=== PATIENT | female | born 1945 | race Caucasian/White ===

== ENCOUNTER → 2016-04-10 | Outpatient (CLI) | payer OTHER ==
[~2016-04-10] MED LIST: ALL300 PO; ATOR-22 PO; BUDE1SUS8 NAE; CHOL1000 PO; CYCL0.052 OP; DIAZ2TAB PO; DIPH-437 PO; METO25TA3 PO; MULT-506 PO; NAPR500T3 PO; PRLSR20 PO; SUMA100T16 PO; VENTOLIN INH; VITA1CRE PO
[2016-04-10 12:06] LABS: HEMATOCRIT 40.3 % (37-47); MEAN CELL VOLUME 94.2 fL (80-100); MEAN CORPUSCULAR HEMOGLOBIN 31.3 pg (25-34); MEAN CORPUSCULAR HGB CONC 33.3 g/dl (32-36); MEAN PLATELET VOLUME 12.4 fL (7.4-10.4); PLATELET COUNT 218 K/uL (130-400); RED BLOOD COUNT 4.28 M/uL (4.2-5.4); WHITE BLOOD COUNT 6.83 K/uL (4.8-10.8)
[2016-04-10 13:03] LABS: BLOOD UREA NITROGEN 20 mg/dl (7-18); BUN/CREATININE RATIO 19.8 (10-20); CARBON DIOXIDE 26 mmol/L (21-32); CHLORIDE 107 mmol/L (98-107); GLUCOSE 96 mg/dl (70-99); POTASSIUM 4.3 mmol/L (3.5-5.1); SODIUM 142 mmol/L (136-145)
[2016-04-10 13:07] LABS: CHOLESTEROL 175 mg/dl (0-200); CHOLESTEROL/HDL RATIO 2.8; HDL CHOLESTEROL 63 mg/dl; LDL CHOLESTEROL CALCULATED 87 mg/dl; TRIGLYCERIDES 123 mg/dl (0-150); VERY LOW DENSITY LIPOPROT CALC 25 mg/dl
== END | disposition home or self-care (01) ==
LOC: C.LABPVFM 08:38
PROVIDERS: ATTEND Family Medicine
DX: Z11.59 Encounter for screening for other viral diseases (principal); E78.2 Mixed hyperlipidemia; D64.9 Anemia, unspecified

== ENCOUNTER → 2016-08-12 | Outpatient (CLI) | payer OTHER ==
[2016-08-13 04:56] LABS: ESTIMATED AVERAGE GLUCOSE 123 mg/dl; HA1C FLAG Normal (Normal)
== END | disposition home or self-care (01) ==
LOC: C.LABPVFM 14:09
PROVIDERS: ATTEND Family Medicine
DX: R73.09 Other abnormal glucose (principal)

== ENCOUNTER → 2017-01-20 | Outpatient (CLI) | payer OTHER ==
[2017-01-20 13:30] LABS: BLOOD UREA NITROGEN 28 mg/dl (7-18); BUN/CREATININE RATIO 26.3 (10-20); CALCIUM 10.5 mg/dl (8.5-10.1); CARBON DIOXIDE 28 mmol/L (21-32); CHLORIDE 107 mmol/L (98-107); CREATININE 1.06 mg/dl (0.60-1.20); GLUCOSE 90 mg/dl (70-99); POTASSIUM 4.4 mmol/L (3.5-5.1); SODIUM 140 mmol/L (136-145)
[2017-01-20 13:36] LABS: ESTIMATED AVERAGE GLUCOSE 120 mg/dl; HA1C FLAG Normal (Normal)
== END | disposition home or self-care (01) ==
LOC: C.LABPVFM 11:17
PROVIDERS: ATTEND Family Medicine
DX: I10 Essential (primary) hypertension (principal); R73.09 Other abnormal glucose

== ENCOUNTER → 2017-03-31 | Outpatient (CLI) | payer OTHER ==
--- NOTE | 2017-03-31 15:09 | MAMMOGRAPHY REPORT ---
BILATERAL DIGITAL SCREENING MAMMOGRAM TOMOSYNTHESIS WITH CAD: 03/31/2017 TECHNIQUE: Breast tomosynthesis in addition to standard 2D mammography was performed. Current study was also evaluated with a Computer Aided Detection (CAD) system. COMPARISON: Comparison is made to exams dated: 02/14/2016 mammogram, 02/01/2015 mammogram, 01/26/2014 mammogram, 01/19/2013 mammogram, 12/30/2011 mammogram, and 11/27/2010 mammogram - [facility]. BREAST COMPOSITION: There are scattered areas of fibroglandular density in both breasts. FINDINGS: No suspicious masses, calcifications, or areas of architectural distortion are noted in ei ther breast. There has been no significant interval change compared to prior exams. IMPRESSION: ACR BI-RADS CATEGORY 1: NEGATIVE There is no mammographic evidence of malignancy. A 1 year screening mammogram is recommended. The pa tient will receive written notification of the results. Approximately 10% of breast cancers are not detected with mammography. A negative mammographic report should not delay biopsy if a clinically suggestive mass is present. Shakira Grant M.D. ah/:03/31/2017 10:59:07 Clam Bed Laborer: Carlie DELEON(R)(M), [facility] letter sent: Normal 1/2 BI-RADS Code: ACR BI-RADS Category 1: Negative
== END | disposition home or self-care (01) ==
LOC: C.MAMM 10:40
PROVIDERS: ATTEND Nurse Practitioner
DX: Z12.31 Encounter for screening mammogram for malignant neoplasm of breast (principal)

== ENCOUNTER 2022-08-31 05:19 | Observation (INO) ==
--- NOTE | 2022-07-24 11:46 | PAT Medication Instructions ---
Medication Instructions Date of Service July 24, 2022 Home Medications Medication Instructions Recorded omeprazole 20 mg capsule,delayed 20 mg PO QAM #90 caps 01/16/22 release allopurinol 300 mg tablet 150 mg PO QAM #45 tabs 07/16/22 atorvastatin 20 mg tablet 20 mg PO QPM #90 tabs 07/16/22 metoprolol succinate 25 mg 25 mg PO QAM #90 tabs 07/16/22 tablet,extended release 24 hr cholecalciferol (vitamin D3) 25 mcg (1,000 unit) capsule 1,000 units PO QAM cyclosporine 0.05 % eye drops in a dropperette (Restasis) 1 drops ophthalmic (eye) Q12H acetaminophen 500 mg capsule 500 mg PO Q4H PRN biotin 5 mg tablet 5 mg PO QAM fluticasone propionate 50 mcg/actuation nasal spray,suspension (Flonase Allergy Relief) 2 spray intranasal QAM multivitamin 1 tab PO QPM coffee 100 mg theanine 200 mg superoxide dismutase 10 mg capsule (Neuriva De-Str ess) 1 cap PO QAM lactobacillus combo no.13 1 billion cell capsule,delayed release (Probiotic Pearls Complete) 1 cap PO QAM omeprazole 20 mg capsule,delayed release 20 mg PO QAM allopurinol 300 mg tablet 150 mg PO QAM atorvastatin 20 mg tablet 20 mg PO QPM metoprolol succinate 25 mg tablet,extended release 24 hr 25 mg PO QAM albuterol sulfate 90 mcg/actuation aerosol inhaler (Ventolin HFA) 2 puff inhalation UD PRN diazepam 5 mg tablet 2.5 - 5 mg PO DAILY PRN ibuprofen 200 mg capsule 600 mg PO BID sumatriptan succinate 100 mg tablet 100 mg PO UD PRN vitamins A,C,N-jsfa-trpesw 4,296 mcg-226 mg-90 mg capsule (PreserVision AREDS) 1 cap PO QAM Continue as directed diazepam 5 mg tablet 2.5 - 5 mg PO DAILY PRN(if needed) sumatriptan succinate 100 mg tablet 100 mg PO UD PRN(if needed) ASK your surgeon for instructions ibuprofen 200 mg capsule 600 mg PO BID STOP taking 2 weeks before surgery (or as soon as possible if surgery is within 2 weeks) biotin 5 mg tablet 5 mg PO QAM vitamins A,C,D-hudw-cmieqw 4,296 mcg-226 mg-90 mg capsule (PreserVision AREDS) 1 cap PO QAM DO NOT take the morning of surgery cholecalciferol (vitamin D3) 25 mcg (1,000 unit) capsule 1,000 units PO QAM coffee 100 mg theanine 200 mg superoxide dismutase 10 mg capsule (Neuriva De- Stress) 1 cap PO QAM lactobacillus combo no.13 1 billion cell capsule,delayed release (Probiotic Pearls Complete) 1 cap PO QAM Take morning of surgery With a small sip of water, OTHERWISE NOTHING TO EAT OR DRINK AFTER MIDNIGHT: cyclosporine 0.05 % eye drops in a dropperette (Restasis) 1 drops ophthalmic (eye) Q12H acetaminophen 500 mg capsule 500 mg PO Q4H PRN(if needed) fluticasone propionate 50 mcg/actuation nasal spray,suspension (Flonase Allergy Relief) 2 spray intranasal QAM omeprazole 20 mg capsule,delayed release 20 mg PO QAM allopurinol 300 mg tablet 150 mg PO QAM metoprolol succinate 25 mg tablet,extended release 24 hr 25 mg PO QAM albuterol sulfate 90 mcg/actuation aerosol inhaler (Ventolin HFA) 2 puff inhalation UD PRN(use if needed; please bring with you to hospital day of surgery if possible) Take evening before surgery cyclosporine 0.05 % eye drops in a dropperette (Restasis) 1 drops ophthalmic (eye) Q12H acetaminophen 500 mg capsule 500 mg PO Q4H PRN(if needed) multivitamin 1 tab PO QPM atorvastatin 20 mg tablet 20 mg PO QPM Other Notes If you have any questions please call us at [phone] or [phone] or [phone] or [phone]
--- NOTE | 2022-07-28 11:58 | Anesthesiology Consultation ---
Date of Service July 28, 2022 Assessment & Plan (1) Encounter for pre-operative examination: - COVID screening: Per assessment on 07/28: No known COVID-19 positive contacts or current COVID-19 related symptoms (does have seasonal allergies with occasional cough/sneezing unchanged. No new issues). Travel screen negative. Patient vaccinated. At surgeon discretion if preop Covid testing being done. - Outpatient joint assessment: Pt currently scheduled for inpatient pathway. If surgeon requests review for outpatient joint pathway, patient is not recommended candidate for outpatient joint program from anesthesia standpoint. - Hx difficult intubation: Reported per patient- told with 2008 surgery r/t decreased oral opening/TMJ. Subsequent Right knee arthroscopy (05/30/20)- Grade 1 view, Glidescope# 3, ETT 7 at [facility]. Chart Review Chart Review: Acceptable Risk for Surgery and Patient seen in Pre Admission Testing Teaching & Discussion Pre-Anesthesia Teaching/Discussion Notes: Instructed NPO after midnight before surgery,except medications with 15 cc of water. Medication instructions provided according to the PAT guidelines. History Surgery Operation Date: 08/31/22 07:00 Proposed Procedures p Right Total Knee Arthroplasty - Andrés Wei DO Height/Weight Height: 5 ft 3 in Weight: 98.8 kg Allergies Allergy/AdvReac Type Severity Reaction Status Date / Time Iodinated Contrast Media Allergy Severe Anaphylaxis Verified 07/28/22 08:54 iodine Allergy Severe Anaphylaxis Verified 07/24/22 08:03 bee venom protein (honey bee) Allergy Intermediate Severe Verified 07/28/22 08:54 swelling latex Allergy Intermediate Blisters- Verified 07/28/22 08:54 contact dermatitis Penicillins Allergy Intermediate Rash Verified 07/28/22 08:54 adhesive Allergy Mild Rash Verified 07/28/22 08:54 house dust mite Allergy Mild Sneezing Verified 07/24/22 08:03 tree and shrub pollen Allergy Mild Runny Verified 07/24/22 08:03 Nose/Coughing/Sneezing ciprofloxacin AdvReac Intermediate Hallucinations, Verified 07/28/22 08:54 suicidal ideations Medications Home Medications Medication Instructions Recorded Confirmed Last Taken cholecalciferol (vitamin D3) 25 1,000 units PO QAM 09/28/18 07/24/22 05/29/20 mcg (1,000 unit) capsule cyclosporine 0.05 % eye drops in a 1 drops ophthalmic (eye) Q12H 11/29/18 07/24/22 05/29/20 dropperette (Restasis) acetaminophen 500 mg capsule 500 mg PO Q4H PRN Pain 12/01/18 07/24/22 05/28/20 biotin 5 mg tablet 5 mg PO QAM 03/21/19 07/24/22 05/29/20 fluticasone propionate 50 2 spray intranasal QAM 10/31/19 07/24/22 05/29/20 mcg/actuation nasal spray,suspension (Flonase Allergy Relief) multivitamin 1 tab PO QPM 05/02/20 07/24/22 05/29/20 coffee 100 mg theanine 200 mg 1 cap PO QAM 09/10/21 07/24/22 Unknown superoxide dismutase 10 mg capsule (Neuriva De-Stress) lactobacillus combo no.13 1 1 cap PO QAM 09/10/21 07/24/22 Unknown billion cell capsule,delayed release (Probiotic Pearls Complete) omeprazole 20 mg capsule,delayed 20 mg PO QAM #90 caps 01/16/22 07/24/22 Unknown release allopurinol 300 mg tablet 150 mg PO QAM #45 tabs 07/16/22 07/24/22 Unknown atorvastatin 20 mg tablet 20 mg PO QPM #90 tabs 07/16/22 07/24/22 Unknown metoprolol succinate 25 mg 25 mg PO QAM #90 tabs 07/16/22 07/24/22 Unknown tablet,extended release 24 hr albuterol sulfate 90 mcg/actuation 2 puff inhalation UD PRN 07/24/22 07/24/22 Unknown aerosol inhaler (Ventolin HFA) bronchospasm diazepam 5 mg tablet 2.5 - 5 mg PO DAILY PRN BALANCE 07/24/22 07/24/22 Unknown PROBLEMS ibuprofen 200 mg capsule 600 mg PO BID 07/24/22 07/24/22 Unknown sumatriptan succinate 100 mg tablet 100 mg PO UD PRN migraine headache 07/24/22 07/24/22 Unknown vitamins A,C,O-lirn-jlkssa 4,296 1 cap PO QAM 07/24/22 07/24/22 Unknown mcg-226 mg-90 mg capsule (PreserVision AREDS) Past Medical History Medical History Asthma Asymmetrical hearing loss of left ear Chronic reflux esophagitis Common migraine without aura Hx Hx of gout Hypertension Irritable bowel syndrome Meniere's disease [place] ear total deafness Mixed hyperlipidemia Obesity Prediabetes Diet control Temporomandibular joint disorder Decreased oral opening per patient, no locking or clicking Urinary incontinence Vertigo Hx Exercise / Class Metabolic Activity III < 4 Walking/Shop/Light housework (one FS (no CP, + SOB)) Past Family History Family History Aunt Breast cancer Grandmother (Maternal) Brain cancer Other No family history of adverse response to anesthesia Denies family history of Ovarian cancer Prostate cancer Myocardial infarction Colorectal cancer Past Surgical History Surgical History Difficult intubation 02/2009 > r/t decreased oral opening/TMJ Subsequent Right knee arthroscopy (05/30/20): Grade 1 view, Glidescope# 3, ETT 7 at [facility] History of anesthesia reaction "combination of anesthesia and the morphine drip causes my breathing to rapid decrease" with multiple previous back surgeries per patient History of appendectomy History of arthrodesis Thumb Carpometacarpal Joint Bilateral History of bilateral cataract extraction History of colonoscopy with polypectomy History of deviated nasal septum Repaired History of hysterectomy History of lumbar surgery x2 (including Lumbar Fusion L4-L5) 2008 and 2015 History of shoulder surgery Right History of tonsillectomy History of tooth extraction abscessed tooth Hx of arthroscopy of knee Right knee arthroscopy (05/30/20): Grade 1 view, Glidescope# 3, ETT 7 at [facility] Hx of ovarian cystectomy Hx of vitrectomy R/L Labyrinthine dysfunction of left ear Surgical repair Nausea and vomiting after administration of anesthetic agent Status post bunionectomy Left Past Anesthesia History Difficult Airway, No Family Hx of Anesthesia Complications and Other 02/2009 > r/t decreased oral opening/TMJ Subsequent Right knee arthroscopy (05/30/20): Grade 1 view, Glidescope# 3, ETT 7 at [facility] "combination of anesthesia and the morphine drip causes my breathing to rapid decrease" with multiple previous back surgeries per patient History of PONV History of PONV and Hx of Motion Sickness Social History Smoking Status: Former smoker tobacco type: cigarettes Do You Dip or Chew Tobacco: No Smoking End Date: 1987 (was "not a heavy smoker") Hx Alcohol Use: Yes Alcohol type: wine alcohol intake frequency: a few times a week Hx Substance Use: No substance use type: does not use Review of Systems Seasonal allergies with occasional cough/sneezing unchanged. No new issues. Patient denies chest pain, shortness of breath, fever, chills, wheezing, palpitations. Physical Exam Vital Signs VITALS BP 133/85 P 64 TEMP 98.6 SP02 96%RA RESP 18 PHYSICAL Full cervical extension range of motion. Full TMJ range of motion. TMD 2.5 finger breaths (small chin) Mallampati Score 1 Dentition: missing side, root canal repairs Lungs: clear throughout to auscultation Cardiac: regular rate and rhythm, no murmurs noted Spine: normal Carotid arteries: negative bruit Extremities: no LE edema Lab Results Anesthesia Preop Results Results Anesthesia Widget: WBC 6.77 K/ul (4.8-10.8) 07/28/22 Hgb 13.1 g/dl (12.0-16.0) 07/28/22 Hct 37.8 % (37.0-47.0) 07/28/22 Plt 183 K/uL (130-400) 07/28/22 Na 140 mmol/L (136-145) 07/28/22 K 4.2 mmol/L (3.5-5.1) 07/28/22 Cl 108 mmol/L (98-107) H 07/28/22 CO2 26 mmol/L (21-32) 07/28/22 BUN 28 mg/dl (6-23) H 07/28/22 Creat 1.02 mg/dl (0.6-1.2) 07/28/22 Glucose Level 105 mg/dl (70-99(Fasting)) H 07/28/22 PT 10.9 Seconds (9.0-12.0) 07/28/22 PTT 25.1 Seconds (21.0-31.0) 07/28/22 INR 1.0 (0.9-1.1) 07/28/22 Blood Type O Positive 07/28/22 Antibody Screen NEGATIVE 07/28/22 Testing Electrocardiogram Date: 07/28/22 NSR at 62bpm. LAFB. Moderate voltage criteria for LVH. No significant change compared to 05/24/20 per visual artist comparison. Chest X-Ray Date: 07/28/22 FINDINGS: The cardiomediastinal and hilar silhouettes are within normal limits. There is no pneumothorax, pleural effusion, airspace consolidation or overt pulmonary edema. Bones of the chest appear grossly intact. Partially imaged lumbar spinal fusion hardware. IMPRESSION: No acute process. COVID-19 Risk Screen Screening Information COVID-19 Screen Date: 07/28/22 Exposure 21 Days Family/Household +COVID Last 21 Days: No Exposure 10 Days Any COVID Exposure Last 10 Days: No Symptoms Last 10 Days Experienced COVID Sx Last 10 Days: No + COVID 0-90 Days COVID + in Last 0-90 Days: No
--- NOTE | 2022-08-25 17:54 | History & Physical Report ---
Date of Service August 25, 2022 Assessment & Plan (1) Right knee DJD: We will proceed with a right total knee arthroplasty. Postoperatively she will be started on aspirin for DVT prophylaxis and kept overnight in the hospital for postop medical management. [facility]. History of Present Illness Chief Complaint: Osteoarthritis of the right knee. Primary Care Provider: Megan Salcido MD Delfina is a pleasant 77-year-old female, who has been dealing with chronic increasing right knee pain. I did a right knee arthroscopy on her about two years ago. She did fairly well with that, but her pain started to return. She has mostly medial-sided knee pain. It is affecting her daily activities. After failing conservative treatment, she has elected proceed with a right total knee arthroplasty. Allergies Allergy/AdvReac Type Severity Reaction Status Date / Time Iodinated Contrast Media Allergy Severe Anaphylaxis Verified 07/28/22 08:54 iodine Allergy Severe Anaphylaxis Verified 07/24/22 08:03 bee venom protein (honey bee) Allergy Intermediate Severe Verified 07/28/22 08:54 swelling latex Allergy Intermediate Blisters- Verified 07/28/22 08:54 contact dermatitis Penicillins Allergy Intermediate Rash Verified 07/28/22 08:54 adhesive Allergy Mild Rash Verified 07/28/22 08:54 house dust mite Allergy Mild Sneezing Verified 07/24/22 08:03 tree and shrub pollen Allergy Mild Runny Verified 07/24/22 08:03 Nose/Coughing/Sneezing ciprofloxacin AdvReac Intermediate Hallucinations, Verified 07/28/22 08:54 suicidal ideations Home Medications Medication Instructions Recorded Confirmed Type cholecalciferol (vitamin D3) 25 1,000 units PO QAM 09/28/18 07/24/22 History mcg (1,000 unit) capsule cyclosporine 0.05 % eye drops in a 1 drops ophthalmic (eye) Q12H 11/29/18 07/24/22 History dropperette (Restasis) acetaminophen 500 mg capsule 500 mg PO Q4H PRN Pain 12/01/18 07/24/22 History biotin 5 mg tablet 5 mg PO QAM 03/21/19 07/24/22 History fluticasone propionate 50 2 spray intranasal QAM 10/31/19 07/24/22 History mcg/actuation nasal spray,suspension (Flonase Allergy Relief) multivitamin 1 tab PO QPM 05/02/20 07/24/22 History coffee 100 mg theanine 200 mg 1 cap PO QAM 09/10/21 07/24/22 History superoxide dismutase 10 mg capsule (Neuriva De-Stress) lactobacillus combo no.13 1 1 cap PO QAM 09/10/21 07/24/22 History billion cell capsule,delayed release (Probiotic Pearls Complete) omeprazole 20 mg capsule,delayed 20 mg PO QAM #90 caps 01/16/22 07/24/22 Rx release allopurinol 300 mg tablet 150 mg PO QAM #45 tabs 07/16/22 07/24/22 Rx atorvastatin 20 mg tablet 20 mg PO QPM #90 tabs 07/16/22 07/24/22 Rx metoprolol succinate 25 mg 25 mg PO QAM #90 tabs 07/16/22 07/24/22 Rx tablet,extended release 24 hr diazepam 5 mg tablet 2.5 - 5 mg PO DAILY PRN BALANCE 07/24/22 07/24/22 History PROBLEMS ibuprofen 200 mg capsule 600 mg PO BID 07/24/22 07/24/22 History sumatriptan succinate 100 mg tablet 100 mg PO UD PRN migraine headache 07/24/22 07/24/22 History vitamins A,C,R-imso-mcxbsr 4,296 1 cap PO QAM 07/24/22 07/24/22 History mcg-226 mg-90 mg capsule (PreserVision AREDS) albuterol sulfate 90 mcg/actuation 2 puff inhalation UD PRN 08/04/22 Rx aerosol inhaler (Ventolin HFA) bronchospasm #18 grams Past Med/Surg History Medical History Asthma Asymmetrical hearing loss of left ear Chronic reflux esophagitis Common migraine without aura Hx Hx of gout Hypertension Irritable bowel syndrome Meniere's disease [place] ear total deafness Mixed hyperlipidemia Obesity Prediabetes Diet control Temporomandibular joint disorder Decreased oral opening per patient, no locking or clicking Urinary incontinence Vertigo Hx Surgical History Difficult intubation 02/2009 > r/t decreased oral opening/TMJ Subsequent Right knee arthroscopy (05/30/20): Grade 1 view, Glidescope# 3, ETT 7 at [facility] History of anesthesia reaction "combination of anesthesia and the morphine drip causes my breathing to rapid decrease" with multiple previous back surgeries per patient History of appendectomy History of arthrodesis Thumb Carpometacarpal Joint Bilateral History of bilateral cataract extraction History of colonoscopy with polypectomy History of deviated nasal septum Repaired History of hysterectomy History of lumbar surgery x2 (including Lumbar Fusion L4-L5) 2008 and 2016 History of shoulder surgery Right History of tonsillectomy History of tooth extraction abscessed tooth Hx of arthroscopy of knee Right knee arthroscopy (05/30/20): Grade 1 view, Glidescope# 3, ETT 7 at [facility] Hx of ovarian cystectomy Hx of vitrectomy R/L Labyrinthine dysfunction of left ear Surgical repair Nausea and vomiting after administration of anesthetic agent Status post bunionectomy Left Family History Aunt Breast cancer Grandmother (Maternal) Brain cancer Other No family history of adverse response to anesthesia Denies family history of Ovarian cancer Prostate cancer Myocardial infarction Colorectal cancer Social History Smoking Status: Former smoker Second Hand Exposure: No; Do You Dip or Chew Tobacco: No; Hx Alcohol Use: Yes Alcohol type: wine Alcohol Intake Frequency: 2-3 x/Week Alcohol Intake Frequency Comment: 2-3 glass of wine a week Hx Substance Use: No Preferred Language: French Communication Ability: Effective Visual Impairment: No Limitations Hearing Ability: [place] Attorney Required: No Beliefs That Will Affect Care: None marital status: Current Living Situation: Alone current occupational status: retired 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 Physical Exam On physical examination of the right knee, she has a slight varus deformity. She has tenderness palpation of the distal medial femoral condyle and over the medial joint line.. Constitutional WD/WN, vitals as above Eyes PERRL, conjunctivae normal, anicteric sclerae ENMT external ear and nose normal, oropharynx normal Neck trachea midline, no thyromegaly Respiratory normal respiratory effort, lungs clear to auscultation Cardiovascular RRR, no murmur, no edema Gastrointestinal (Abdomen) normal bowel sounds, soft, nontender, no hepatosplenomegaly Skin no rashes, warm and dry Psychiatric A+Ox3, euthymic affect Results & Data Results & Data Laboratory Results . Diagnostic Findings X-rays of the right knee show advanced osteoarthritis with joint space narrowing, osteophyte formation, and [id number] articulation. PG Care Time/CCT Total # of Minutes Spent Total Time Spent with Patient: Total time spent is greater than 50% in coordination of care (as documented) at patient's floor/unit and/or counseling patient: Coding Level of Care Code None Diagnoses Right knee DJD M17.11
[2022-08-31] MEDS ORDERED: dexAMETHasone 4 MG TAB PO SCH (06:00)
[2022-08-31] MEDS ORDERED: LR 500ML BOLUS, THEN 15ML/HR IV SCH (06:00)
[2022-08-31] MEDS ORDERED: LR 60ML/HR IV SCH (06:00)
[2022-08-31] MEDS ORDERED: TRANEXAMIC ACID 1,000 MG **IV Intra-op IV SCH (06:00)
[2022-08-31] MEDS ORDERED: ACETAMINOPHEN 500 MG TAB PO SCH (06:00)
[2022-08-31] MEDS ORDERED: GABAPENTIN 300 MG CAP PO SCH (06:00)
[2022-08-31] MEDS ORDERED: FAMOTIDINE 20 MG TAB PO SCH (06:00)
[2022-08-31] MEDS ORDERED: TRANEXAMIC ACID 1,000 MG **IV Pre-op IV SCH (06:00)
[2022-08-31] MEDS ORDERED: ceFAZolin 2000MG 2,000 MG/15 ML SYR IV SCH (06:00)
[2022-08-31] MEDS ORDERED: ORTHO JOINT MIX INFIL SCH (06:00)
[2022-08-31] MEDS ORDERED: ceFAZolin 2,000 MG/15 ML IV PUSH IV ONE (06:23)
[2022-08-31] MEDS ORDERED: LIDOCAINE 2% 2 ML VIAL/AMP(20MG/ML) INFIL ONE (06:24)
[2022-08-31] MEDS ORDERED: PROPOFOL IV EMULSION 10 MG/ML 20 ML VIAL IV ONE (06:24)
[2022-08-31] MEDS ORDERED: MIDAZOLAM HCL 1 MG/ML 2ML VIAL ONE ×2 (06:24)
[2022-08-31] MEDS ORDERED: fentaNYL citrate PF 100 MCG/2 ML VIAL ONE (06:24)
[2022-08-31] MEDS ORDERED: BUPIVACAINE 0.5 % 5 MG/1 ML PF 10ML VIAL ONE (06:26)
[2022-08-31] MEDS ORDERED: ROPIVACAINE 0.5% 5 MG/ML 30 ML VIAL ONE (06:26)
[2022-08-31] MEDS: ALLERGY Noted to ORDERED Medication SCH ×3 (06:27→10:42)
[2022-08-31] MEDS ORDERED: Nursing to Pharmacy Communication SCH (06:30)
[2022-08-31] MEDS ORDERED: fentaNYL citrate PF 100 MCG/2 ML VIAL IV PRN (06:34)
[2022-08-31] MEDS ORDERED: ONDANSETRON INJ 2 MG/ML 2 ML VIAL IV PRN ×2 (06:34→10:26)
[2022-08-31] MEDS ORDERED: ATROPINE SULFATE 0.1 MG/ML 10ML SYR IV PRN (06:34)
[2022-08-31] MEDS ORDERED: ePHEDrine sulfate 50 MG/ML AMP IV PRN (06:34)
--- NOTE | 2022-08-31 06:34 | History & Physical Bridge Note ---
Date of Service August 31, 2022 History & Physical Bridge Note I have examined the patient, reviewed the History & Physical and in the interval since the performance of the History & Physical I have noted the following changes of clinical significance: no changes noted
[2022-08-31] MEDS ORDERED: ORTHO JOINT ANESTHETIC ONE (06:36)
--- NOTE | 2022-08-31 07:58 | Operative Report ---
PG Post Operative Report Pre & Post Diagnosis Operation Date: 08/31/22 07:00 Pre-Op Diagnosis: Right Knee Degenerative Joint Disease Post-Op Diagnosis: Right Knee Degenerative Joint Disease I identified the patient and participated in the time-out.: Yes Procedure Operation Date: 08/31/22 07:00 Actual Procedures p Right Total Knee Arthroplasty(Right) - Andrés Wei DO Surgeon Andrés Wei DO [employer] Operator Helper Andrés Linares PA-C Estimated Blood Loss 30 Findings Consistent with Post-Op Diagnosis Specimens Right femoral and tibial bone Description of Procedure Implants used: I used a Varsha Persona total knee arthroplasty system with a size 8 standard femur, E tibia, 31 oval patella, and a size 11 medial congruent polyethylene bearing. All components were cemented in place with Biomet cement. Delfina arrived [facility] for the above procedure. She was seen in the preoperative holding area and the operative extremity was identified and signed. She was given a preoperative antibiotic, TXA, a spinal anesthetic and an adductor nerve block. She was taken back to the operating room and laid on the table in supine position. She was given basic sedation. The operative knee was then prepped and draped in sterile fashion. A timeout was done, and the patient and the operative extremity was properly identified. A midline incision was made directly over the patella. Dissection was taken down to the extensor mechanism. A midvastus arthrotomy was used. The medial retinaculum was released and the fat pad was mostly excised. The knee was flexed and the ACL, PCL, and meniscus were removed. A drill was sent down the center of the femoral canal followed by an intramedullary cookie. Off that cookie a distal femoral cutting block was placed. 9 mm was resected off the distal femur at 5 of valgus. A posterior referencing AP sizing guide was then placed on the distal femur. The femur measured to be a size 8. 2 drill holes were placed in 3 of external rotation. A 4-in-1 cutting block was then impacted into place. Anterior, posterior, and chamfer cuts were then made. The proximal tibia was then exposed. An external tibial alignment guide was placed. A tibial cut guide was then anchored in place and the proximal tibia was then resected. The posterior aspect of the knee was then opened up and any additional meniscus fragments and osteophytes were removed. The tibia measured to be a size E. The tibial plate was then placed in the appropriate rotation and the tibia was drilled and punched. Trial components were then placed. I used a size 11 medial congruent polyethylene insert. The knee was brought through a full range of motion and felt to be stable. The peg holes for the femoral component were then drilled. The patella was then everted and 9 mm was resected off the posterior aspect of the patella. The patella measured to be a size 31 oval. 3 peg holes were then drilled. A trial patella was placed. The knee was once again brought through a full range of motion and felt to be stable. Trial components were then removed. The surrounding soft tissues were injected with 100 cc of an orthopedic pain control cocktail. All components were then cemented into place with Biomet cement. The final polyethylene insert was then snapped into place. Once cement was dry the tourniquet was deflated. Hemostasis was obtained. A dilute betadyne lavage was then done for 3 minutes. The joint was then irrigated with normal saline solution. The midvastus arthr otomy was then closed with #1 Vicryl suture. The skin was closed with 2-0 Vicryl, 3-0V lock suture, and cassie. A soft compressive dressing was placed. She was then transferred to a hospital bed and taken to the postanesthesia care unit in stable condition. She tolerated the procedure well. Andrés Linares PA-C, was present for the entire procedure. He was critical for patient positioning, prepping, draping, retraction exposure, wound closure and application of sterile dressing. I attest to the content of the Intraoperative Record and any orders documented therein. Any exceptions are noted below.
--- NOTE | 2022-08-31 09:03 | XRay Report ---
XR knee RT 1 or 2V routine CLINICAL HISTORY: Postoperative evaluation. COMPARISON: Right knee MRI April 01, 2020 and right knee radiographs April 14, 2022. FINDINGS: Alignment of the total right knee arthroplasty is anatomic. There is no periprosthetic fra cture. No unexpected radiopaque foreign bodies are present. There are skin cassie. IMPRESSION: Expected findings following total right knee arthroplasty. ACT 112: Negative or not required by law. Electronically signed by: Subhash Meraz M.D. 08/31/2022 9:00 AM
[2022-08-31] MEDS ORDERED: HYDROCODONE/ACETAMOPHEN 5/325MG TAB PO PRN (09:25)
[2022-08-31] MEDS ORDERED: bisacodyL 10 MG SUPP PR PRN (10:26)
[2022-08-31] MEDS ORDERED: METOCLOPRAMIDE HCL INJ 5 MG/ML 2 ML VIAL IV PRN (10:26)
[2022-08-31] MEDS ORDERED: ALBUTEROL HFA 8 GM INHALER INH PRN (10:26)
[2022-08-31] MEDS ORDERED: NALOXONE HCL 0.4 MG/1 ML VIAL/CARP IV PRN (10:26)
[2022-08-31] MEDS ORDERED: diazePAM 5 MG TABLET PO PRN (10:26)
[2022-08-31] MEDS ORDERED: oxyCODONE HCL IR 5 MG TAB (IMMEDIATE RELEASE) PO PRN (10:26)
[2022-08-31] MEDS ORDERED: SUMAtriptan succinate 100 MG TAB PO PRN (10:26)
[2022-08-31] MEDS ORDERED: HYDROmorphone INJ 0.5 MG/0.5 ML SYR IV PRN (10:26)
[2022-08-31] MEDS ORDERED: MAGNESIUM HYDROXIDE SUSP 30 ML UDC PO PRN (10:26)
[2022-08-31] MEDS: SODIUM CHLORIDE 0.9% 1000ML 1,000 ML IV SCH ×2 (10:43→21:20)
[2022-08-31] MEDS: FLUTICASONE PROPIONATE NA SPR 16 GM BTL SCH (11:16)
[2022-08-31] MEDS: MULTIVITAMIN TAB PO SCH (11:16)
[2022-08-31] MEDS: ASPIRIN 81 MG ECTAB PO SCH ×2 (11:16→20:05)
[2022-08-31] MEDS: ARTIFICIAL TEARS OP SCH ×2 (11:16→22:22)
[2022-08-31] MEDS: DOCUSATE SODIUM 100 MG CAP PO SCH ×2 (11:16→20:07)
[2022-08-31] MEDS: allopurinoL 300 MG TAB PO SCH (11:17)
[2022-08-31] MEDS: KETOROLAC TROMETHAMINE 15 MG/ML VIAL IV SCH ×3 (11:17→22:22)
[2022-08-31] MEDS: METOPROLOL SUCC 25MG EXT REL TAB PO SCH (11:17)
--- NOTE | 2022-08-31 12:27 | Anesthesiology Progress Note ---
Date of Service August 31, 2022 Anesthesia Post Procedure Vital Signs Vital Signs: Temp Pulse Pulse Resp BP Pulse Ox O2 Del Method 08/31/22 11:33 97.0 F L 56 L 12 128/80 95 Room Air 08/31/22 10:58 57 L 12 130/84 96 Nasal Cannula 08/31/22 10:30 Nasal Cannula 08/31/22 10:30 97.5 F L 57 L 18 135/84 99 Nasal Cannula 08/31/22 10:15 98.1 F 54 L 15 125/77 100 Nasal Cannula 08/31/22 09:45 50 L 12 122/66 100 Nasal Cannula 08/31/22 09:35 52 L 10 L 128/75 99 Nasal Cannula 08/31/22 09:15 53 L 13 140/71 100 Nasal Cannula 08/31/22 10:05 50 L 14 139/82 99 Nasal Cannula 08/31/22 09:55 61 12 119/75 100 Nasal Cannula 08/31/22 09:25 61 12 134/72 100 Nasal Cannula 08/31/22 09:05 54 L 13 136/77 100 Nasal Cannula 08/31/22 08:45 55 L 12 141/82 H 100 Nasal Cannula 08/31/22 08:35 58 L 8 L 130/81 100 Nasal Cannula 08/31/22 08:55 52 L 19 148/84 H 100 Nasal Cannula 08/31/22 08:25 63 12 123/80 100 Nasal Cannula 08/31/22 08:18 97.9 F 64 16 130/70 97 Nasal Cannula 08/31/22 05:46 98.8 F 69 20 157/101 H 96 Room Air O2 Flow Rate 08/31/22 11:33 08/31/22 10:58 1 08/31/22 10:30 2 08/31/22 10:30 2 08/31/22 10:15 2 08/31/22 09:45 2 08/31/22 09:35 2 08/31/22 09:15 2 08/31/22 10:05 2 08/31/22 09:55 2 08/31/22 09:25 2 08/31/22 09:05 2 08/31/22 08:45 2 08/31/22 08:35 2 08/31/22 08:55 2 08/31/22 08:25 2 08/31/22 08:18 2 08/31/22 05:46 Pain Intensity Right Knee: Pain Intensity: 3 Transfer of Care Handoff Completed per policy Notes Mental Status: alert / awake / arousable and participated in evaluation Patient Amnestic to Procedure: Yes Nausea / Vomiting: adequately controlled Pain: adequately controlled Airway Patency, RR, SpO2: stable & adequate BP & HR: stable & adequate Hydration State: stable & adequate Neuraxial Anesthesia: was administered and sensory block is resolving Anesthetic Complications: no major complications apparent and Pt Satisfied with anesthetic care
[2022-08-31] MEDS: ACETAMINOPHEN 500 MG TAB PO SCH ×2 (14:29→22:22)
[2022-08-31] MEDS: ceFAZolin 2000MG 2,000 MG/15 ML SYR IV SCH ×2 (14:30→22:22)
[2022-08-31] MEDS ORDERED: SENNA 8.6 MG TAB PO SCH (21:00)
[2022-08-31] MEDS ORDERED: ATORVASTATIN 20 MG TAB PO SCH (21:00)
[2022-09-01] MEDS: KETOROLAC TROMETHAMINE 15 MG/ML VIAL IV SCH ×3 (05:42→16:18)
[2022-09-01] MEDS: ACETAMINOPHEN 500 MG TAB PO SCH ×2 (05:42→14:54)
--- NOTE | 2022-09-01 07:26 | Orthopedic Progress Note ---
Date of Service September 01, 2022 Assessment & Plan (1) Status post right knee replacement: Overall she is doing very well. She is not having much pain in the right knee. She will be seen by physical therapy today for ambulation and range of motion exercises. She is on aspirin for DVT prophylaxis. The nursing staff can change her dressing after physical therapy today. She was hoping to go to a rehab facility postoperatively. She does live alone. She can be discharged to rehab facility later today if a bed becomes available. Johanna Mathis was seen and examined at bedside this morning. Overall she is doing very well. She is not having much pain in the right knee. She has been up and ambulating to the bathroom. She has no complaints.. Review of Systems All systems reviewed & are unremarkable except as noted in HPI & below. Physical Exam On physical examination of the right knee, the dressing is clean and dry. Her leg is out full extension. She has active dorsiflexion plantarflexion of her right ankle.. Results & Data Results & Data Laboratory Results . Diagnostic Findings Postoperative x-rays of the right knee show the prosthesis to be in anatomic alignment without any evidence of fracture, desiccation, or loosening.. PG Care Time/CCT Total # of Minutes Spent Total Time Spent with Patient: Total time spent is greater than 50% in coordination of care (as documented) at patient's floor/unit and/or counseling patient: Coding Level of Care Code 88822 Post Operative Follow-Up Diagnoses Status post right knee replacement Z96.651
[2022-09-01] MEDS: allopurinoL 300 MG TAB PO SCH (07:29)
[2022-09-01] MEDS: METOPROLOL SUCC 25MG EXT REL TAB PO SCH (07:29)
[2022-09-01] MEDS: DOCUSATE SODIUM 100 MG CAP PO SCH (07:29)
[2022-09-01] MEDS: MULTIVITAMIN TAB PO SCH (07:29)
[2022-09-01] MEDS: FLUTICASONE PROPIONATE NA SPR 16 GM BTL SCH (07:30)
[2022-09-01] MEDS: ASPIRIN 81 MG ECTAB PO SCH (07:30)
[2022-09-01] MEDS ORDERED: dexAMETHasone 4 MG TAB PO SCH (08:00)
[2022-09-01] MEDS: ARTIFICIAL TEARS OP SCH (10:50)
== END 2022-09-01 18:44 ==
LOC: 3E 05:19 → ASU 05:19